=== PATIENT | male | born 1970 | race Caucasian/White ===

== ENCOUNTER 2017-06-15 10:29 | Day surgery (SDC) | payer OTHER ==
[~2017-06-15 10:29] MED LIST: FENTANYL 100MCG/2ML SOL ONE; LIDOCAINE HCL 1% MPF SOL ONE; PROPOFOL 10 MG/ML EMU IV ONE; PROPOFOL 500 MG/50 ML EMU IV ONE; SUCCINYLCHOLINE CHLORIDE 20 MG/ML SOL IV ONE
[2017-06-15] MEDS ORDERED: BUPIVACAINE/EPI 0.5% 10 ML SOL INFIL ONE (11:17)
[2017-06-15] MEDS ORDERED: BUPIVACAINE LIPOSOME 20 ML SUS ONE (11:18)
[2017-06-15] MEDS ORDERED: FENTANYL 100MCG/2ML SOL ONE ×2 (11:47→12:10)
[2017-06-15] MEDS ORDERED: KETOROLAC TROMETHAMINE 30 MG/ML SOL ONE (13:05)
[2017-06-15] MEDS ORDERED: APAP/HYDROCODONE 325/5 TAB ONE (13:29)
[2017-06-15] MEDS ORDERED: AZITHROMYCIN 250 MG TAB ONE (13:32)
[2017-06-15 13:33] VITALS: RESP 18
[2017-06-15 13:48] VITALS: BP 142/92; PULSE 83; TEMP 97.6; O2SAT 100
== END 2017-06-15 14:32 | disposition home or self-care (01) | DRG 395 ==
LOC: SURG 10:29
PROVIDERS: ATTEND Surgery
DX: K60.3 Anal fistula (principal)
CPT/HCPCS: J0330; J1885; J3010; A6402; J2001; J2704